=== PATIENT | female | born 1995 | race African-American/Black ===

== ENCOUNTER 2020-08-22 23:30 | Emergency (ER) | payer MEDICAID ==
[~2020-08-22] VITALS: Ht 167.6 cm; Wt 60.0 kg
[2020-08-23] MEDS ORDERED: ACETAMINOPHEN WITH CODEINE 300/30MG TABLET PO STA (01:22)
[2020-08-23] MEDS ORDERED: BACITRACIN ZINC OINT UDPKT TOP ONE (01:30)
[2020-08-23 03:20] VITALS: BP 129/71
[2020-08-23] MEDS ORDERED: CYCL5TAB PO (03:25)
[2020-08-23] MEDS ORDERED: IBUP-2029 PO (03:25)
== END 2020-08-23 03:46 | disposition home or self-care (01) ==
LOC: ER 23:30
DX: S39.012A Strain of muscle, fascia and tendon of lower back, initial encounter (principal); S50.12XA Contusion of left forearm, initial encounter; V49.49XA Driver injured in collision with other motor vehicles in traffic accident, initial encounter; Y93.89 Activity, other specified; Y92.89 Other specified places as the place of occurrence of the external cause; Y99.8 Other external cause status
CPT/HCPCS: 72100; 73080; 73090; 99284